=== PATIENT | female | born 1970 | race Caucasian/White ===

== ENCOUNTER → 2017-01-13 | Outpatient (CLI) | payer OTHER ==
[~2017-01-13] MED LIST: DARVOCET-N 1001 TA1 PO; FLEXERIL10 MG PO; IBUPROFEN PO; IBUPROFEN800 MG PO; PHENERGAN PO; PROVENTIL17 GM INH; TEMAZEPAM PO; VICODIN 5/500 T1 TAB PO; WELLBUTRIN SR150 MG PO
--- NOTE | ~2017-01-13 | ST ---
Unit #: [id number] #: [id number] Patient: MIKE FLORES [id number] [address] [address] [id number] O MR#: [id number] NAME: MIKE FLORES : 1970 SEX: F STUDY DATE/TIME: 01/15/2017 UNIT: CE ROOM: STUDY DESCRIPTION: Attending Physician: Clary Canales A.P.R.N. Primary Care Physician: Jose Sheets M.D. CARDIOLOGY REPORT EXAM Stress ECG. INDICATIONS Chest pain. SUMMARY The patient exercised on a Cullen protocol to maximal effort. The patient developed shortness of breath and mild chest pain during exercise. The patient completed 4 minutes and 31 seconds of exercise. Heart rate increased from 97 to 168 and blood pressure increased to 128/85 to 170/84. Heart rate was 97%. The rest and stress ECG showed nonspecific ST changes in the inferior and lateral leads. Despite the chest pressure, there were PACs noted at peak exercise and PVCs noted at mid exercise. IMPRESSION 1. Benign ventricular and atrial ectopy. 2. Normal stress ECG. 3. Severe deconditioning based on the patient's age. 4. Normal heart rate and upper normal blood pressure responses. Dictated by... Naun Crenshaw/ena TD: 01/16/2017 08:26 JOB #: [id number] CARDIOLOGY REPORT X Vipul Lombardo MD CARDIOLOGY REPORT
== END | disposition home or self-care (01) ==
LOC: CEKG 09:18
DX: R07.9 Chest pain, unspecified (principal); R20.0 Anesthesia of skin; I51.7 Cardiomegaly
CPT/HCPCS: 93017; 93306

== ENCOUNTER → 2017-05-26 | Outpatient (CLI) | payer OTHER ==
--- NOTE | ~2017-05-26 | CR229 ---
[facility] A Service of [facility] RADIOLOGY TEXT RESULTS PATIENT: MIKE FLORES LOCATION: [facility] : 70 UNIT #: [id number] AGE: [address]: JUANCARLOS BOATENG SEX: F ORDER DR: [id number] [facility] [address] [place], [place] [address] [id number] O MR#: [id number] Acc #: [id number] NAME: MIKE FLORES : 1970 SEX: F STUDY DATE/TIME: 05/26/2017 9:33 UNIT: [facility] ROOM: STUDY DESCRIPTION: CR Shoulder Min 2 View Lt Attending Physician: Juancarlos Boateng Aprn Referring Physician: Juancarlos Boateng Aprn Ordering Physician: Juancarlos Boateng Aprn Primary Care Physician: Clary Canales A.P.R.N. MEDICAL IMAGING REPORT This report is preliminary unless electronic signature is present EXAM Left shoulder, 3 views COMPARISON 47-year-old female with left shoulder pain since falling over dog 2 days ago. FINDINGS Benign bone island is seen in the humeral head. The shoulder is anatomically aligned. No evidence of acute fracture. No significant degenerative change. IMPRESSION No acute fracture or dislocation of the left shoulder. No significant degenerative change. Dictated by... Jose Alejandro Pryor M.D. THIS IS AN ELECTRONICALLY VERIFIED REPORT Jose Alejandro Pryor M.D. at 05/30/2017 10:04 PM BLM/pcl TD: 05/26/2017 23:30 JOB #: [id number] MEDICAL IMAGING REPORT Page 1 of 1 COPY
--- NOTE | ~2017-05-26 | CR170 ---
[facility] A Service of [facility] & [facility] RADIOLOGY TEXT RESULTS PATIENT: MIKE FLORES LOCATION: [facility] : 70 UNIT #: [id number] AGE: [address]: JUANCARLOS BOATENG SEX: F ORDER DR: [id number] [facility] [address] [place], [place] [address] [id number] O MR#: [id number] Acc #: [id number] NAME: MIKE FLORES : 1970 SEX: F STUDY DATE/TIME: 05/26/2017 9:34 UNIT: [facility] ROOM: STUDY DESCRIPTION: CR Knee 2 Views Rt Attending Physician: Juancarlos Boateng Aprn Referring Physician: Juancarlos Boateng Aprn Ordering Physician: Juancarlos Boateng Aprn Primary Care Physician: Clary Canales A.P.R.N. MEDICAL IMAGING REPORT This report is preliminary unless electronic signature is present EXAM Right knee, 2 views. COMPARISON None. INDICATIONS 47-year-old female with right knee pain after falling over her dog 2 days ago. FINDINGS Bones are anatomically aligned. No suprapatellar effusion. No evidence of acute fracture or degenerative change. No radiopaque foreign body. IMPRESSION Normal exam. Dictated by... Jose Alejandro Pryor M.D. THIS IS AN ELECTRONICALLY VERIFIED REPORT Jose Alejandro Pryor M.D. at 05/30/2017 10:05 PM Aleshia TD: 05/26/2017 23:45 JOB #: [id number] MEDICAL IMAGING REPORT Page 1 of 1 COPY
--- NOTE | ~2017-05-26 | CR90 ---
[facility] A Service of [facility] & [facility] RADIOLOGY TEXT RESULTS PATIENT: MIKE FLORES LOCATION: [facility] : 70 UNIT #: [id number] AGE: [address]: JUANCARLOS BOATENG SEX: F ORDER DR: [id number] [facility] [address] [place], [place] [address] [id number] O MR#: [id number] Acc #: [id number] NAME: MIKE FLORES : 1970 SEX: F STUDY DATE/TIME: 05/26/2017 9:34 UNIT: [facility] ROOM: STUDY DESCRIPTION: CR Elbow 2 View Lt Attending Physician: Juancarlos Boateng Aprn Referring Physician: Juancarlos Boateng Aprn Ordering Physician: Juancarlos Boateng Aprn Primary Care Physician: Clary Canales A.P.R.N. MEDICAL IMAGING REPORT This report is preliminary unless electronic signature is present EXAM Left elbow, 3 views COMPARISON None. INDICATIONS 47-year-old female left elbow pain after falling over dog 2 days ago. FINDINGS There is no elbow effusion. Bones are anatomically aligned. No evidence of acute fracture or significant degenerative change. IMPRESSION Normal exam. Dictated by... Jose Alejandro Pryor M.D. THIS IS AN ELECTRONICALLY VERIFIED REPORT Jose Alejandro Pryor M.D. at 05/30/2017 10:05 PM BLM/pcl TD: 05/26/2017 23:31 JOB #: [id number] MEDICAL IMAGING REPORT Page 1 of 1 COPY
== END | disposition home or self-care (01) ==
LOC: CRAD 09:02
DX: M25.561 Pain in right knee (principal); M25.522 Pain in left elbow; M25.512 Pain in left shoulder; W01.0XXA Fall on same level from slipping, tripping and stumbling without subsequent striking against object, initial encounter
CPT/HCPCS: 73030; 73070; 73560